=== PATIENT | male | born 1985 | race Caucasian/White ===

== ENCOUNTER → 2019-10-28 | Outpatient (CLI) | payer OTHER ==
[~2019-10-28] MED LIST: APIX5TAB PO; CEFAZOLIN 1,000 MG ONE; DEXAMETHASONE 4 MG/ML, 1ML ONE; FENTANYL PF 250 MCG/5ML ONE; HEPARIN 1,000 UNITS/ML, 10ML ONE; MIDAZOLAM 1 MG/ML, 2ML ONE; ONDANSETRON 2MG/ML, 2ML ONE; PROPOFOL 10 MG/ML, 20ML ONE; ROCURONIUM 10MG/ML,5ML ONE; SUCCINYLCHOLINE 20 MG/ML, 10ML ONE; SUGAMMADEX 200 MG/2 ML IVPush ONE
== END | disposition home or self-care (01) ==
LOC: STAR 08:26
PROVIDERS: ATTEND Anesthesiology
DX: Z01.812 Encounter for preprocedural laboratory examination (principal); Z20.828 Contact with and (suspected) exposure to other viral communicable diseases
CPT/HCPCS: 36415; 87635

== ENCOUNTER 2019-11-01 05:52 | Day surgery (SDC) | payer OTHER ==
[~2019-11-01] VITALS: Ht 182.9 cm; Wt 88.6 kg
[2019-11-01] MEDS ORDERED: SODIUM CHLORIDE 0.9% 1,000 ML IV SCH ×2 (06:17→09:53)
[2019-11-01] MEDS ORDERED: PLEASE ENTER ALLERGIES MC SCH (06:30)
[2019-11-01] MEDS ORDERED: APIX5TAB PO (06:32)
[2019-11-01 06:33] VITALS: BP 136/91
[2019-11-01 06:49] LABS: BASOPHILS # (AUTO) 0.02 x10^3/uL (0-0.1); BASOPHILS % (AUTO) 0 % (0-1); EOSINOPHILS # (AUTO) 0.04 x10^3/uL (0-0.4); EOSINOPHILS % (AUTO) 1 % (1-7); LYMPHOCYTES # (AUTO) 1.83 x10^3/uL (1-3.4); LYMPHOCYTES % (AUTO) 39 % (22-44); MD NO; MEAN CORPUSCULAR HEMOGLOBIN 31.3 pg (27.5-34.5); MEAN CORPUSCULAR HGB CONC 34.5 g/dL (33.2-36.2); MEAN PLATELET VOLUME 7.9 fL (7.4-10.4); MONOCYTES # (AUTO) 0.33 x10^3/uL (0.2-0.8); MONOCYTES % (AUTO) 7 % (2-9); NEUTROPHILS % (AUTO) 53 % (42-75); PLATELET COUNT 267 x10^3/uL (130-400); RED CELL DISTRIBUTION WIDTH 12.4 % (9.4-14.8)
[2019-11-01 06:55] LABS: ANION GAP 6 mmol/L (5-15); CALCIUM 8.9 mg/dL (8.5-10.1); CHLORIDE 114 mmol/L (98-107)
[2019-11-01] MEDS ORDERED: ROCURONIUM 10 MG/ML,10ML ONE (07:57)
[2019-11-01] MEDS ORDERED: CEFAZOLIN 1,000 MG ONE (07:57)
[2019-11-01] MEDS ORDERED: MIDAZOLAM 1 MG/ML, 2ML ONE (07:57)
[2019-11-01] MEDS ORDERED: DEXAMETHASONE 4 MG/ML, 1ML ONE (07:57)
[2019-11-01] MEDS ORDERED: HEPARIN 1,000 UNITS/ML, 10ML ONE (07:57)
[2019-11-01] MEDS ORDERED: SUCCINYLCHOLINE 20 MG/ML, 10ML ONE (07:57)
[2019-11-01] MEDS ORDERED: FENTANYL PF 100 MCG/2ML ONE (07:57)
[2019-11-01] MEDS ORDERED: PROPOFOL 10 MG/ML, 20ML ONE (07:57)
[2019-11-01] MEDS ORDERED: ONDANSETRON 2MG/ML, 2ML ONE (07:57)
[2019-11-01] MEDS ORDERED: SUGAMMADEX 200 MG/2 ML IVPush ONE (07:57)
[2019-11-01] MEDS ORDERED: LIDOCAINE 1%, 20ML ONE (08:14)
[2019-11-01] MEDS ORDERED: ACETAMINOPHEN 325 MG TABLET ONE (13:37)
== END 2019-11-01 14:38 | disposition home or self-care (01) ==
LOC: CACL 05:52
PROVIDERS: ATTEND Internal Medicine Cardiovascular Disease
DX: Q21.1 Atrial septal defect (principal); I63.9 Cerebral infarction, unspecified; Z79.01 Long term (current) use of anticoagulants; Z79.899 Other long term (current) drug therapy
CPT/HCPCS: 36415; 76937; 80048; 85025; 85347; 93005; 93308; 93312; 93321; 93325; 93580; C1760; C1769; C1817; C1894; J0330; J0690; J1100; J1644; J2250; J2405; J2704; J3010; 93582

== ENCOUNTER → 2019-11-24 | Outpatient (CLI) | payer OTHER ==
[~2019-11-24] MED LIST changes: -CEFAZOLIN 1,000 MG ONE; -DEXAMETHASONE 4 MG/ML, 1ML ONE; -FENTANYL PF 250 MCG/5ML ONE; -HEPARIN 1,000 UNITS/ML, 10ML ONE; -MIDAZOLAM 1 MG/ML, 2ML ONE; -ONDANSETRON 2MG/ML, 2ML ONE; -PROPOFOL 10 MG/ML, 20ML ONE; -ROCURONIUM 10MG/ML,5ML ONE; -SUCCINYLCHOLINE 20 MG/ML, 10ML ONE; -SUGAMMADEX 200 MG/2 ML IVPush ONE
== END | disposition home or self-care (01) ==
LOC: CVU 08:09
PROVIDERS: ATTEND Internal Medicine Cardiovascular Disease
DX: Z01.810 Encounter for preprocedural cardiovascular examination (principal); I65.29 Occlusion and stenosis of unspecified carotid artery; R06.02 Shortness of breath; Q21.1 Atrial septal defect
CPT/HCPCS: 93306; 93356